=== PATIENT | male | born 1940 | race Caucasian/White ===

== ENCOUNTER 2016-11-22 17:20 | Inpatient (IN) | payer MEDICARE, OTHER ==
[2016-11-22 17:54] VITALS: BMI 27.3
[2016-11-22 18:00] LABS: AUTOMATED EOSINOPHIL 0.1 % (0-5); AUTOMATED LYMPH 6.9 % (17-44); MPV 9.5 fL (7.4-10.4)
[2016-11-22 18:14] LABS: PARTIAL THROMB. TIME 29.4 SEC (22-35)
--- NOTE | 2016-11-22 18:14 | EDPRACDOC ---
- General Information Chief Complaint: Chest Pain Stated Complaint: CHEST PAIN Time Seen by Provider: 11/22/16 17:46 Information Source: Patient Mode of Arrival: Ambulance Home Medications: Home Medications Clonidine [Catapres-TTS 3 (0.3 mg/24 hr)] 1 patch TOP Q7D 05/26/13 Loratadine [Claritin] 10 mg PO BID 05/26/13 NPH, Human Insulin Isophane [Novolin N] 30 unit SQ BID 05/26/13 Omeprazole [Prilosec] 20 mg PO DAILY 05/26/13 HydrALAZINE (Cardiovascular) [Apresoline] 50 mg PO TID #90 tab 06/14/13 Calcium Carb/Vit D3/Minerals [Caltrate w/ Vit D Tab (600mg/800IU)] 600 - 800 mg PO DAILY 10/03/13 Rosuvastatin Calcium [Crestor] 5 mg PO DAILY 10/03/13 Flunisolide [Nasarel] 1 spray SONNY DAILY 03/05/15 Isosorbide Mononitrate [Imdur] 60 mg PO DAILY 03/05/15 Rivaroxaban [Xarelto] 15 mg PO DAILY 03/05/15 Tramadol HCl 1 - 2 tabs PO Q4 PRN 03/05/15 Hydrocodone Bit/Acetaminophen [Lortab 5/325] 1 tab PO Q6H PRN #14 tab 03/06/15 Amlodipine [Norvasc] 5 mg PO DAILY #30 tab 04/02/15 Carvedilol [Coreg] 25 mg PO BID #60 tablet 04/02/15 Furosemide [Lasix] 80 mg PO 0800,1600 #120 04/02/15 POTASSIUM CHLORIDE Tablet [K-DUR 20 mEq Tablet*] 20 meq PO DAILY@1200 #30 tab.er.prt 04/02/15 Probiotic Blend [Aura Q] 1 tab PO BIDLS #60 tablet 04/02/15 Acetaminophen [Tylenol] 1,300 mg PO DAILY PRN 11/22/16 Amoxicillin Trihydrate [Amoxicillin] 2,000 mg PO .BID X 7DAYS 11/22/16 Cyanocobalamin (Vitamin B-12) [Vitamin B-12 (cyanocobalamin)] 1,000 mcg SL DAILY 11/22/16 E-Manganese 1 tab PO DAILY PRN 11/22/16 Ferrous Sulfate [Iron] 325 mg PO DAILY 11/22/16 Fexofenadine HCl [Lexus] 180 mg PO DAILY 11/22/16 Nitroglycerin Sublingual Tab [NTG (NitroStat Sublingual Tab)] 0.4 mg SL Q5MX3 PRN 11/22/16 Oxycodone HCl [Roxicodone] 5 mg PO Q4-6H PRN 11/22/16 Tamsulosin HCl [Flomax] 0.4 mg PO QHS 11/22/16 Allergies/Adverse Reactions: Allergies Allergy/AdvReac Type Severity Reaction Status Date / Time No Known Allergies Allergy Verified 03/28/15 21:50 - History of Present Illness 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 REALLY BAD TODAY. SINUS PROBLEMS. CHEST PRESSURE TODAY. FEVER. STOPPED BLOOD PRESSURE MED AND DIABETES MEDS SO THEY WOULDN'T INTERACT WITH ABX (AMOX). NO CHEST PAIN CURRENTLY. FELT BETTER AT REST. MILD SOB TODAY. 4 CARDIAC STENTS, LAST STENTS OVER 5 YEARS AGO. CABG 20 YEARS AGO. 2012 NSTEMI. CATH AT THAT TIME. PATENT GRAFTS. NO STENTS NEEDED. DETERMINED TO BE DEMAND EVENT. ED Past Medical History - Patient Medical History Cardiac History: Reports: Coronary Artery Disease, Hypertension, Congestive Heart Failure, Heart Attack, Cardiac Catheterization, CABG, Hypercholesterolemia Respiratory History: Reports: COPD, Pneumonia GI/ History: Reports: Renal Disease (Baseline creatinine tends to run between 1.6 and 3.3), Gastroesophageal Reflux Musculoskeletal History: Reports: Arthritis, Gout, Osteoarthritis Psychological History: Denies: Depression, Substance Use Disorder Systemic History: Reports: Anemia, Diabetes. Denies: Cancer Surgical History: Reports: CABG, Angioplasty (With stent placement approximately 10 years ago.), Cardiac Catheterization, Tonsillectomy/ Adnoidectomy, Other (Cataract extractions bilaterally.) - Family Medical History Reports: Hypertension, Diabetes, Cancer (TWIN BROTHER, LUNG CANCER), Stroke, Cardiac Disorders - Social Medical History Smoking Status: Former smoker Social History: Denies: Substance Use Disorder - Physical Exam Constitutional: Alert (Awake), No apparent distress Oriented to: Time, Person, Place Last recorded Vital Signs: Last Vital Signs Temp 99.7 F 11/22/16 17:20 Pulse 81 11/22/16 17:20 Resp 16 11/22/16 17:20 BP 176/84 11/22/16 17:20 Pulse Ox 94 11/22/16 17:20 Oxygen Pulse Oxygen Saturation 94 O2 Device Room Air Oxygen Flow Rate Fraction of Inspired Oxygen ( FIO2) - HEENT Head: Normal ( normocephalic) Eye Exam: Normal (PERRL, EOMI, Sclera white) Oropharynx: Normal (Pharynx:Moist without exudate,Gums-no swelling) Nose: No Symptoms Reported (septum midline) Neck: Normal (FROM, trachea at midline) - Respiratory/Cardiovascular Respiratory: Normal - CTA (BBS clear to auscultation without adventitious sounds ) Cardiovascular: Normal (RRR without murmur, gallop or rub) - GI Auscultation: Normal (NABS) Palpation: Normal (Soft,No rebound or guarding, non distended) Tenderness: Non tender Yates's Sign: Negative - Musculoskeletal Back: Normal (Non-Tender) Extremities: Normal (Normal tone, Pulses 2+ No cyanosis or edema, FROM) - Integumentary Skin: Normal, Warm, Dry Lymphatics: Normal (no adenopathy) - Neurologic Memory Impaired: Normal Motor Function: Normal (Normal tone, Pulses 2+ No cyanosis or edema, FROM) Cranial Nerve: Normal (CN II-X11 intact sensation, strength 5/5) Cerebellar: Normal Mood Description: Normal Perception: Normal - Action ASA given in the ED: No Aspirin therapy held due to: Rivaroxaban Home Med - Results 11/22/16 17:38 11/22/16 17:38 WBC 8.8 xk/uL (3.8-10.8) 11/22/16 17:38 RBC 3.67 xM/uL (4.70-6.10) L 11/22/16 17:38 Hgb 10.9 g/dL (14.0-18.0) L 11/22/16 17:38 Hct 32.3 % (42-52) L 11/22/16 17:38 MCV 88 fL (80-94) 11/22/16 17:38 MCH 29.8 pg (27-32) 11/22/16 17:38 MCHC 33.8 g/dl (33-36) 11/22/16 17:38 RDW 13.8 % (11.5-14.5) 11/22/16 17:38 Plt Count 214 xk/uL (130-400) 11/22/16 17:38 MPV 9.5 fL (7.4-10.4) 11/22/16 17:38 Neut % (Auto) 83.0 % (45-76) H 11/22/16 17:38 Lymph % (Auto) 6.9 % (17-44) L 11/22/16 17:38 [place] % (Auto) 9.0 % (3-10) 11/22/16 17:38 Eos % (Auto) 0.1 % (0-5) 11/22/16 17:38 Baso % (Auto) 1.0 % (0-2) 11/22/16 17:38 Absolute Neuts (auto) 7.30 xk/uL (1.7-8.2) 11/22/16 17:38 Absolute Lymphs (auto) 0.53 xk/uL (0.65-4.75) L 11/22/16 17:38 POC Capillary Glucose 534 MG/DL (70-99) H* 11/22/16 17:36 Lab Results 11/22/16 11/22/16 17:38 17:36 WBC 8.8 RBC 3.67 L Hgb 10.9 L Hct 32.3 L MCV 88 MCH 29.8 MCHC 33.8 RDW 13.8 Plt Count 214 MPV 9.5 Neut % (Auto) 83.0 H Lymph % (Auto) 6.9 L [place] % (Auto) 9.0 Eos % (Auto) 0.1 Baso % (Auto) 1.0 Absolute Neuts (auto) 7.30 Absolute Lymphs (auto) 0.53 L POC Capillary Glucose 534 H* Laboratory Results - last 24 hr 11/22/16 11/22/16 17:36 17:38 WBC 8.8 RBC 3.67 L Hgb 10.9 L Hct 32.3 L MCV 88 MCH 29.8 MCHC 33.8 RDW 13.8 Plt Count 214 MPV 9.5 Neut % (Auto) 83.0 H Lymph % (Auto) 6.9 L [place] % (Auto) 9.0 Eos % (Auto) 0.1 Baso % (Auto) 1.0 Absolute Neuts (auto) 7.30 Absolute Lymphs (auto) 0.53 L POC Capillary Glucose 534 H* Laboratory Results 11/22/16 17:38 - EKG EKG #1 EKG Time: 17:44 -: Yes EKG interpreted by me Rate: bpm: 85 [place]: Normal Rhythm: NSR Block: None ST: Nonsp Comments: ABNORMAL EKG - Additional Information OLD RECORDS REVIEWED. - Departure Yes I personally saw and evaluated the patient. Disposition: Admit IP To This Hospital Condition: Stable Final Diagnosis: Hyperglycemia Chest pain Qualifiers: Chest pain type: unspecified Qualified Code(s): R07.9 - Chest pain, unspecified Hypertension Qualifiers: Hypertension type: essential hypertension Qualified Code(s): I10 - Essential ( primary) hypertension Decision to Admit Time: 21:18 Decision to admit date: 11/22/16 Decision to admit: from ED - Physician Consulted Hospitalist Time Called: 21:18 Provider Called: Leon Morrow Time Correspondence Section Supervisor Returned Call: 21:18
[2016-11-22 18:16] LABS: LEUKOCYTES/URINE NEG (NEGATIVE); NITRITE/URINE NEG (NEGATIVE); RBC/URINE 0-2 (0-2); URINE OCCULT BLOOD NEG (NEG/TRACE)
--- NOTE | 2016-11-22 18:16 | DIRPT ---
CLINICAL DATA: Chest pain, fever. EXAM: PORTABLE CHEST 1 VIEW COMPARISON: March 31, 2015. FINDINGS: The heart size and mediastinal contours are within normal limits. Both lungs are clear. Sternotomy wires are noted. No pneumothorax or pleural effusion is noted. The visualized skeletal structures are unremarkable. IMPRESSION: No acute cardiopulmonary abnormality seen. Electronically Signed By: Christopher Morgan Jr, M.D. On: 11/22/2016 18:13
[2016-11-22 18:36] LABS: ABG Draw Site Left Radial; ALLEN'S TEST PASS; PCO2 47.2 mmHg (35-45)
[2016-11-22 18:37] LABS: BEb 0.4 (+/- 2); TCO2 29.4 MMOL/L (23-27)
[2016-11-22 18:58] LABS: BLOOD UREA NITROGEN 46 MG/DL (9-20); CALC CORRECTED 9.3 MG/DL (8.4-10.2); CALCIUM 8.8 MG/DL (8.4-10.2); CHLORIDE 97 mEq/L (98-107); SODIUM LEVEL 132 mEq/L (137-146); TOTAL PROTEIN 6.3 G/DL (6.3-8.2)
[2016-11-22 19:03] LABS: CALCULATED OSMOLALITY 292 MOs/Kg (270-290)
[2016-11-22 19:08] LABS: GLUCOSE 556 MG/DL (70-99)
[2016-11-22] MEDS ORDERED: REGULAR INSULIN 100 UNITS/ML - 3 ML VIAL SQ ONE (19:21)
[2016-11-22] MEDS ORDERED: CARVEDILOL 25 MG TABLET PO ONE (19:22)
[2016-11-22] MEDS ORDERED: NITROGLYCERINE 2 % OINTMENT PACK TOP ONE (21:19)
--- NOTE | 2016-11-22 23:36 | HISTPHYS ---
- Chief Complaint chest pain and feeling sick - History of Present Illness PRIMARY CARE PROVIDER: Dr. Chau HPI: The patient is a 76 yo man with coronary artery disease and history of CABG who reports he has felt ill for several days; he went to the doctor's office on Sunday, was diagnosed with a sinus infection, and started on an antibiotic. Mild sore throat. Had a fever 2 days ago. Developed some chest pain today. Feels severe fatigue. Onset: Fatigue and fever started 2 days ago. Chest pain started today. Duration : intermittent. Location: substernal. Radiation: none. Character: 05/21. Heaviness and pressure. Alleviated by: sitting. Exacerbated by: exertion. Associated Symptoms: Minimal shortness of breath. Mild cough. Wheezing. Fever and chills. No diaphoresis. Fatigue is severe. Leg swelling over the last month is improving with treatment. Chest pain. No palpitations. Treatments: none at home except usual medications. He has had increased leg swelling in the last month; his doctor doubled his dose of Lasix, and the leg swelling is now decreasing. - Medical History Cardiac History: Reports: Coronary Artery Disease, Hypertension, Congestive Heart Failure, Heart Attack, Cardiac Catheterization, CABG (2000), Hypercholesterolemia Respiratory History: Reports: COPD, Pneumonia GI/ History: Reports: Renal Disease (Baseline creatinine tends to run between 1.6 and 3.3), Gastroesophageal Reflux, BPH Musculoskeletal History: Reports: Arthritis, Gout, Osteoarthritis Systemic History: Reports: Anemia, Diabetes. Denies: Cancer Psychological History: Denies: Depression, Substance Use Disorder - Surgical History Reports: CABG, Angioplasty (With stent placement approximately 10 years ago.), Cardiac Catheterization, Tonsillectomy/Adnoidectomy, Other (Cataract extractions bilaterally.) - Medictions/Allergies Allergies No Known Allergies Allergy (Verified 03/28/15 21:50) Current Medication List: Reviewed Home Medications Clonidine [Catapres-TTS 3 (0.3 mg/24 hr)] 1 patch TOP Q7D 05/26/13 Loratadine [Claritin] 10 mg PO BID 05/26/13 NPH, Human Insulin Isophane [Novolin N] 30 unit SQ BID 05/26/13 Omeprazole [Prilosec] 20 mg PO DAILY 05/26/13 HydrALAZINE (Cardiovascular) [Apresoline] 50 mg PO TID #90 tab 06/14/13 Calcium Carb/Vit D3/Minerals [Caltrate w/ Vit D Tab (600mg/800IU)] 600 - 800 mg PO DAILY 10/03/13 Rosuvastatin Calcium [Crestor] 5 mg PO DAILY 10/03/13 Flunisolide [Nasarel] 1 spray SONNY DAILY 03/05/15 Isosorbide Mononitrate [Imdur] 60 mg PO DAILY 03/05/15 Rivaroxaban [Xarelto] 15 mg PO DAILY 03/05/15 Tramadol HCl 1 - 2 tabs PO Q4 PRN 03/05/15 Hydrocodone Bit/Acetaminophen [Lortab 5/325] 1 tab PO Q6H PRN #14 tab 03/06/15 Amlodipine [Norvasc] 5 mg PO DAILY #30 tab 04/02/15 Carvedilol [Coreg] 25 mg PO BID #60 tablet 04/02/15 Furosemide [Lasix] 80 mg PO 0800,1600 #120 04/02/15 POTASSIUM CHLORIDE Tablet [K-DUR 20 mEq Tablet*] 20 meq PO DAILY@1200 #30 tab.er.prt 04/02/15 Probiotic Blend [Aura Q] 1 tab PO BIDLS #60 tablet 04/02/15 Acetaminophen [Tylenol] 1,300 mg PO DAILY PRN 11/22/16 Amoxicillin Trihydrate [Amoxicillin] 2,000 mg PO .BID X 7DAYS 11/22/16 Cyanocobalamin (Vitamin B-12) [Vitamin B-12 (cyanocobalamin)] 1,000 mcg SL DAILY 11/22/16 E-Manganese 1 tab PO DAILY PRN 11/22/16 Ferrous Sulfate [Iron] 325 mg PO DAILY 11/22/16 Fexofenadine HCl [Lexus] 180 mg PO DAILY 11/22/16 Nitroglycerin Sublingual Tab [NTG (NitroStat Sublingual Tab)] 0.4 mg SL Q5MX3 PRN 11/22/16 Oxycodone HCl [Roxicodone] 5 mg PO Q4-6H PRN 11/22/16 Tamsulosin HCl [Flomax] 0.4 mg PO QHS 11/22/16 - Family History Reports: Hypertension, Diabetes (Sister), Cancer (TWIN BROTHER, LUNG CANCER), Stroke (Father, brother), Cardiac Disorders (Mother: heart disease. Brother and sister: MD.) - Social History Smoking Status: Former smoker Social History: Denies: Alcohol Use, Substance Use Disorder - Review of Systems GENERAL: Fever, chills. No diaphoresis. Positive for fatigue/malaise. HEENT: No ear pain or discharge. Has nasal discharge but no nasal bleeding. Mild throat pain but no throat swelling. No eye pain or eye redness. RESPIRATORY: Minimal shortness of breath. Mild cough. Wheezing. CARDIOVASCULAR: Chest pain. No palpitations. GI: No abdominal pain, nausea, vomiting, diarrhea, constipation, or bloody stool. NEUROLOGICAL: No headache or focal weakness. INTEGUMENT: no rashes, itching, or lesions. LYMPHATIC SYSTEM: no lymph node swelling or pain. MUSCULOSKELETAL: no new pain or joint swelling. GENITOURINARY: No dysuria or hematuria. ENDOCRINE: No polyuria or polydipsia. HEME: No chronic anemia, bleeding, or easy bruising. - Physical Exam Vital Signs: Initial Vitals Temperature 99.7 F 11/22/16 17:20 Pulse Rate 81 11/22/16 17:20 Respiratory Rate 16 11/22/16 17:20 Blood Pressure 176/84 11/22/16 17:20 Pulse Oxygen Saturation 94 11/22/16 17:20 Vital Signs - 24 hr 11/22/16 11/22/16 11/22/16 17:20 18:40 20:23 Temperature 99.7 F 99 F Pulse Rate 81 73 80 Respiratory 16 20 18 Rate Blood Pressure 176/84 212/95 H 180/81 H Pulse Oxygen 94 93 95 Saturation 11/22/16 11/22/16 21:52 23:25 Temperature 99.3 F 101.2 F H Pulse Rate 83 Respiratory 16 Rate Blood Pressure 203/84 H Pulse Oxygen 94 Saturation Weight: 86.7 kg Height: 5'9" BMI: 28.2 - Other Exam Other Exam Findings: GENERAL: Ill-appearing, well nourished, in acute distress. HEENT: Normocephalic, atraumatic; pupils equal and round. Nares patent, without discharge or bleeding. No oropharyngeal lesions or erythema. Mucous membranes are dry. NECK: is supple, no masses, trachea midline. RESPIRATORY: Clear to auscultation bilaterally. Chest wall movements are symmetric. No use of accessory muscles to breathe. Decreased breath sounds bilaterally. No wheezing, rales, rhonchi. CARDIOVASCULAR: Normal S1, S2. Murmur 2/6 systolic heard intermittently. No rubs , or gallops. PMI non-displaced. Carotids: no carotid bruits. Tachycardia. DP pulses 2+ bilaterally. GI: soft, nontender, non-distended, normal active bowel sounds. No hepatosplenomegaly. INTEGUMENT: Clean, dry, and intact. No rashes. No lesions. MUSCULOSKELETAL: Moving all extremities. No cyanosis. No clubbing. Edema: trace lower extremity edema bilaterally. NEUROLOGICAL: Cranial nerves 2-12 grossly intact. Motor 5/5 throughout. Reflexes : 2+ bilaterally. Babinski: toes downgoing bilaterally. Intact Finger to nose. Sensory grossly intact to light touch. Intact rapid alternating movements bilaterally. No pronator drift. PSYCHIATRIC: Fully oriented. Normal and appropriate affect. LYMPHATIC: [place] cervical lymphadenopathy. No supraclavicular lymphadenopathy. - Lab Results Laboratory Tests 11/22/16 11/22/16 11/22/16 17:36 17:38 17:38 WBC 8.8 RBC 3.67 L Hgb 10.9 L Hct 32.3 L MCV 88 MCH 29.8 MCHC 33.8 RDW 13.8 Plt Count 214 MPV 9.5 Neut % (Auto) 83.0 H Lymph % (Auto) 6.9 L [place] % (Auto) 9.0 Eos % (Auto) 0.1 Baso % (Auto) 1.0 Absolute Neuts (auto) 7.30 Absolute Lymphs (auto) 0.53 L PT INR APTT Puncture Site pH pCO2 pO2 HCO3 Total CO2 Base Excess FiO2 % Specimen Drawn By Sodium 132 L Potassium 4.8 Chloride 97 L Carbon Dioxide 23 Anion Gap 17 H BUN 46 H Creatinine 2.20 H Estimated GFR (MDRD) 29 L Glucose 556 H* POC Capillary Glucose 534 H* Hemoglobin A1c Calculated Osmolality 292 H Lactic Acid Calcium 8.8 Corrected Calcium 9.3 Total Bilirubin 0.9 AST 20 ALT 28 Alkaline Phosphatase 66 Troponin I 0.06 Ogo-V-Oreatfdydmr Pept 21897 H Total Protein 6.3 Albumin 3.5 Triglycerides Cholesterol LDL Cholesterol, Calc VLDL Cholesterol, Calc HDL Cholesterol Cholesterol/HDL Ratio Urine Color Urine Clarity Urine pH Ur Specific [place] Urine Protein Urine Glucose (UA) Urine Ketones Urine Occult Blood Urine Nitrite Urine Bilirubin Urine Urobilinogen Ur Leukocyte Esterase Urine RBC Ur Epithelial Cells Urine Mucus 11/22/16 11/22/16 11/22/16 17:38 17:56 18:25 WBC RBC Hgb Hct MCV MCH MCHC RDW Plt Count MPV Neut % (Auto) Lymph % (Auto) [place] % (Auto) Eos % (Auto) Baso % (Auto) Absolute Neuts (auto) Absolute Lymphs (auto) PT 10.7 INR 1.0 APTT 29.4 Puncture Site Left radial pH 7.450 pCO2 47.2 H pO2 62.0 L HCO3 27.7 H Total CO2 29.4 H Base Excess 0.4 FiO2 % 21% Specimen Drawn By Stana Sodium Potassium Chloride Carbon Dioxide Anion Gap BUN Creatinine Estimated GFR (MDRD) Glucose POC Capillary Glucose Hemoglobin A1c Calculated Osmolality Lactic Acid Calcium Corrected Calcium Total Bilirubin AST ALT Alkaline Phosphatase Troponin I Lui-C-Sfjjneeoxus Pept Total Protein Albumin Triglycerides Cholesterol LDL Cholesterol, Calc VLDL Cholesterol, Calc HDL Cholesterol Cholesterol/HDL Ratio Urine Color Pale yellow Urine Clarity Clear Urine pH 8.0 Ur Specific [place] 1.005 Urine Protein 3+ H Urine Glucose (UA) 3+ Urine Ketones 1+ H Urine Occult Blood Neg Urine Nitrite Neg Urine Bilirubin Neg Urine Urobilinogen <2.0 Ur Leukocyte Esterase Neg Urine RBC 0-2 Ur Epithelial Cells Occ Urine Mucus Occ 11/22/16 11/22/16 11/22/16 20:29 23:15 23:15 WBC RBC Hgb Hct MCV MCH MCHC RDW Plt Count MPV Neut % (Auto) Lymph % (Auto) [place] % (Auto) Eos % (Auto) Baso % (Auto) Absolute Neuts (auto) Absolute Lymphs (auto) PT INR APTT Puncture Site pH pCO2 pO2 HCO3 Total CO2 Base Excess FiO2 % Specimen Drawn By Sodium Potassium Chloride Carbon Dioxide Anion Gap BUN Creatinine Estimated GFR (MDRD) Glucose POC Capillary Glucose Hemoglobin A1c 9.8 H Calculated Osmolality Lactic Acid Calcium Corrected Calcium Total Bilirubin AST ALT Alkaline Phosphatase Troponin I 0.07 0.08 [id number] Pept Total Protein Albumin Triglycerides Cholesterol LDL Cholesterol, Calc VLDL Cholesterol, Calc HDL Cholesterol Cholesterol/HDL Ratio Urine Color Urine Clarity Urine pH Ur Specific [place] Urine Protein Urine Glucose (UA) Urine Ketones Urine Occult Blood Urine Nitrite Urine Bilirubin Urine Urobilinogen Ur Leukocyte Esterase Urine RBC Ur Epithelial Cells Urine Mucus - Diagnostic Findings EK bpm. Sinus rhythm with sinus arrhythmia. Inferior infarct, age undetermined. ST and T-wave abnormality, consider lateral ischemia. Minimal ST depression in leads 1, V5. T-wave inversion in leads 1, V5, V6. Minimal J- point elevation in lead 3. Reviewed EKG personally. Chest x-ray, viewed personally: EXAM: PORTABLE CHEST 1 VIEW COMPARISON: March 31, 2015. FINDINGS: The heart size and mediastinal contours are within normal limits. Both lungs are clear. Sternotomy wires are noted. No pneumothorax or pleural effusion is noted. The visualized skeletal structures are unremarkable. IMPRESSION: No acute cardiopulmonary abnormality seen. - Assessment (1) Acute coronary syndrome I24.9 - ACUTE ISCHEMIC HEART DISEASE, UNSPECIFIED Acute Present on Admission: Yes Patient with known coronary artery disease, history of CABG, multiple risk factors, presents with chest pain that is concerning for cardiac ischemia. First troponin in vogt zone and second troponin slightly higher. Plan: Obtain cardiac enzymes x 3. Place patient on telemetry. Give patient oxygen, aspirin. Give nitroglycerin, and morphine as needed for chest pain. Give statin. Note: No stress test has been ordered for the morning because the patient is having severe elevation of blood pressure requiring nitroglycerin IV. He also appears to be having an infectious illness. Patient is anticoagulated with Xarelto. Beta nichol and RUSLAN inhibitor ordered. (2) Hypertensive emergency I16.1 - HYPERTENSIVE EMERGENCY Acute Present on Admission: Yes Severe elevation of his blood pressure. Difficult to treat. Plan: Beta nichol. RUSLAN/ARB - caution due to renal function. Hydralazine. Nitro. If no improvement start IV nitro gtt. (3) Hypoxemia R09.02 - HYPOXEMIA Acute Present on Admission: Yes Plan: O2 by [place] prn. (4) Febrile illness, acute R50.9 - FEVER, UNSPECIFIED Acute Present on Admission: Yes Fever at home. Developed fever shortly after admision. Source of fever is unknown. Could be the sinus infection he was diagnosed with several days ago. Plan: Cultures. Monitor for signs of infection. (5) Type 2 diabetes mellitus with hyperglycemia E11.65 - TYPE 2 DIABETES MELLITUS WITH HYPERGLYCEMIA Acute Present on Admission: Yes Plan: Hold oral diabetes medications. Check fingerstick blood sugars q ac and hs. Sliding scale insulin. Will need to use high-dose sliding scale due to the severe elevation of the patient's glucose. Ordered A1c and urine microalbumin. - Plan Reviewed notes from Dr. Chau's office. Notes greatly appreciated. Case Care Discussed with: Patient, Family
[2016-11-22] MEDS ORDERED: LABETALOL 20 MG/4 ML SYRINGE IV PRN (23:40)
[2016-11-22] MEDS ORDERED: hydrALAZINE 20 MG/ML VIAL IV PRN (23:41)
[2016-11-22] MEDS ORDERED: NITROGLYCERINE 0.4 MG TAB SL PRN (23:42)
[2016-11-22] MEDS ORDERED: GLUCOSE (ORAL GEL) 15 GM TUBE PO PRN (23:42)
[2016-11-22] MEDS ORDERED: DEXTROSE 25 GM/50 ML PFS IV PRN (23:42)
[2016-11-22] MEDS ORDERED: GLUCAGON 1 MG VIAL SQ PRN (23:42)
[2016-11-23] MEDS: REGULAR INSULIN 100 UNITS/ML - 3 ML VIAL SQ SCH ×5 (00:06→22:55)
[2016-11-23] MEDS: NITROGLYCERINE 2 % OINTMENT PACK TOP SCH ×4 (00:08→17:26)
[2016-11-23] MEDS ORDERED: ACETAMINOPHEN 325 MG/TAB TABLET PO ONE (01:36)
[2016-11-23] MEDS ORDERED: TRAMADOL HCL 50 MG TAB PO PRN (01:40)
[2016-11-23] MEDS ORDERED: HYDROCODONE 5 MG/ACETAMIN 325 MG TAB PO PRN (01:40)
[2016-11-23] MEDS ORDERED: Vaccine Screening Complete SCH (02:00)
[2016-11-23] MEDS ORDERED: NITROGLYCERINE 0.4 MG TAB SL PRN (02:03)
[2016-11-23] MEDS ORDERED: MORPHINE 2 MG/ML INJECTION IV PRN (02:03)
[2016-11-23] MEDS ORDERED: ACETAMINOPHEN 325 MG/TAB TABLET PO PRN (02:07)
[2016-11-23] MEDS ORDERED: Docusate Sodium 100 MG CAP PO PRN (02:07)
[2016-11-23] MEDS ORDERED: BENZONATATE 100 MG PERLES PO PRN (02:07)
[2016-11-23] MEDS ORDERED: ONDANSETRON HCL 4 MG/2 ML VIAL IV PRN (02:07)
[2016-11-23] MEDS ORDERED: SENNA CONCENTRATE TAB PO PRN (02:07)
[2016-11-23] MEDS ORDERED: TEMAZEPAM 15 MG CAP PO PRN (02:07)
[2016-11-23] MEDS ORDERED: PROMETHAZINE 25 MG/ML VIAL IV PRN (02:07)
[2016-11-23] MEDS ORDERED: ACETAMINOPHEN 325 MG SUPP PR PRN (02:07)
[2016-11-23] MEDS ORDERED: BISACODYL 5 MG TAB PO PRN (02:07)
[2016-11-23] MEDS ORDERED: GUAIFEN 100 MG-DEXTROMETH 10 MG PER 5 ML PO PRN (02:07)
[2016-11-23] MEDS ORDERED: SIMETHICONE 80 MG TAB PO PRN (02:07)
[2016-11-23] MEDS: Nitroglycerin D5W 50,000 MCG/250 ML IVBOT IV SCH (02:29)
[2016-11-23] MEDS ORDERED: NS 1,000 ML IV ONE (02:38)
[2016-11-23] MEDS: Levofloxacin 750 mg/150 ml D5W 750 MG/150 ML RTU IV SCH (02:40)
[2016-11-23] MEDS ORDERED: Pharmacy Order Set Alert SCH (03:00)
[2016-11-23] MEDS ORDERED: FLUTICASONE PROPIONATE 16 GM BOT NAS SCH (03:00)
[2016-11-23] MEDS ORDERED: NPH INSULIN 100 UNITS/ML PEN SQ SCH (03:00)
[2016-11-23 03:01] LABS: MPV 9.1 fL (7.4-10.4)
[2016-11-23 03:13] LABS: BLOOD UREA NITROGEN 45 MG/DL (9-20); CALC CORRECTED 9.8 MG/DL (8.4-10.2); CALCIUM 8.9 MG/DL (8.4-10.2); CALCULATED OSMOLALITY 277 MOs/Kg (270-290); CHLORIDE 101 mEq/L (98-107); GLUCOSE 147 MG/DL (70-99); LDL (calc.) 40.6 MG/DL (<100); SODIUM LEVEL 136 mEq/L (137-146); TOTAL PROTEIN 5.6 G/DL (6.3-8.2); VLDL (calc.) 35.4 MG/DL (5-40)
[2016-11-23] MEDS ORDERED: ROPINIROLE HCL 0.5 MG TABLET PO ONE (05:43)
[2016-11-23] MEDS: hydrALAZINE 25 MG TAB PO SCH ×3 (06:23→22:49)
[2016-11-23] MEDS: PANTOPRAZOLE 40 MG TAB PO SCH (06:23)
[2016-11-23] MEDS: ISOSORBIDE MONONITRATE 30 MG TAB PO SCH (06:25)
[2016-11-23] MEDS: FUROSEMIDE 40 MG TAB PO SCH ×2 (08:16→15:22)
[2016-11-23] MEDS: LISINOPRIL 5 MG TAB PO SCH (08:18)
[2016-11-23] MEDS: ROSUVASTATIN 10 MG TAB PO SCH (08:18)
[2016-11-23] MEDS: FEXOFENADINE HCL 180 MG TAB PO SCH (08:18)
[2016-11-23] MEDS: RIVAROXABAN 10 MG TAB PO SCH (08:19)
[2016-11-23] MEDS: CARVEDILOL 25 MG TABLET PO SCH ×2 (08:20→22:50)
[2016-11-23] MEDS: AMLODIPINE 5 MG TAB PO SCH (08:20)
[2016-11-23] MEDS: NPH INSULIN 100 UNITS/ML PEN SQ SCH ×2 (08:21→22:54)
[2016-11-23] MEDS: FLUTICASONE PROPIONATE 16 GM BOT NAS SCH (08:21)
[2016-11-23] MEDS ORDERED: Non-Formulary Medication ITEM (Ferrous Sulfate [Iron] 325 MG) PO SCH (09:00)
[2016-11-23] MEDS ORDERED: NPH HUMAN INSULIN ISOPHANE SQ SCH (09:00)
[2016-11-23] MEDS ORDERED: Non-Formulary Medication ITEM (Rosuvastatin Calcium [Crestor] 10 MG) PO SCH (09:00)
[2016-11-23] MEDS ORDERED: Non-Formulary Medication ITEM (Omeprazole 20 MG) PO SCH (09:00)
[2016-11-23] MEDS ORDERED: Non-Formulary Medication ITEM (Cyanocobalamin (Vitamin B-12) [Vitamin B-12 (Cyanocobalam SL SCH (09:00)
[2016-11-23] MEDS ORDERED: FLUNISOLIDE NAS SCH (09:00)
[2016-11-23] MEDS ORDERED: Non-Formulary Medication ITEM (Rivaroxaban [Xarelto] 15 MG) PO SCH (09:00)
[2016-11-23] MEDS: FERROUS SULFATE 324 MG TAB PO SCH (11:18)
[2016-11-23] MEDS: CYANOCOBALAMIN (Vitamin B-12) 500 MCG TABLET PO SCH (11:19)
[2016-11-23] MEDS: PROBIOTIC BLEND TAB PO SCH ×2 (11:19→17:26)
[2016-11-23] MEDS: POTASSIUM CHLORIDE 20 MEQ TAB PO SCH (11:19)
--- NOTE | 2016-11-23 11:48 | DIRPT ---
CLINICAL DATA: Fever, cough, sinus problems EXAM: CHEST 2 VIEW COMPARISON: 11/22/2016 FINDINGS: There is no focal parenchymal opacity. There are trace bilateral pleural effusions. There is a known pneumothorax. There is mild bilateral interstitial prominence. There is stable cardiomegaly. There is evidence of prior median sternotomy. The osseous structures are unremarkable. IMPRESSION: Cardiomegaly with mild pulmonary vascular congestion. Electronically Signed By: Regla Thompson On: 11/23/2016 11:46
[2016-11-23] MEDS ORDERED: CALCIUM CARBONATE 500 MG TAB PO PRN (12:53)
[2016-11-23] MEDS ORDERED: ROPINIROLE HCL 0.5 MG TABLET PO PRN (17:22)
--- NOTE | 2016-11-23 17:28 | GENMEDPROG ---
Subjective Note: Patient admitted early this morning with chest pains. Later he developed a fever. Workup has been unremarkable. Notes Reviewed: Yes Events from last night noted and discussed with Clinical Staff Currently: Reports: Cough, Fever/Chills, Other (Mild upper respiratory symptoms) . Denies: Nausea and Vomiting, Abdominal Pain DVT Prophylaxis: Yes - Physical Examination Vital Signs and I&O: Last Vital Signs Temp 99.1 F 11/23/16 16:00 Pulse 74 11/23/16 17:00 Resp 18 11/23/16 16:00 BP 161/60 11/23/16 17:00 Pulse Ox 94 11/23/16 16:00 Oxygen Pulse Oxygen Saturation 94 O2 Device Room Air Oxygen Flow Rate Fraction of Inspired Oxygen ( FIO2) Intake & Output 11/20/16 11/21/16 11/22/16 11/23/16 23:59 23:59 23:59 23:59 Intake Total 669 Output Total 550 Balance 119 Patient's weight 86.721 kg General: Alert, Oriented x3, No acute distress, Well appearing, Well nourished HEENT: Normal (Normocephalic, atraumatic;EOMI.Sclera white, Nares patent, without discharge or bleeding. No oropharyngeal lesions or erythema. Mucous membranes are dry.) Neck: Non-tender, Full range of motion, Normal Trachea alignment, Normal inspection (No cervical lymphadenopathy. No supraclavicular lymphadenopathy.), No Masses palpable, Supple Lymphatics: Normal (no adenopathy) Respiratory: Normal - CTA (BBS clear to auscultation without adventitious sounds ) Cardiovascular: Regular rate and rhythm (No bradycardia or tachycardia), Normal S1, No Gallops,Rubs/Murmurs, Normal S2, Good Pedal Pulses (DP pulses 2+ bilaterally) GI: Normal bowel sounds (normal active sounds), Soft (non-distended), Non tender , No hepatospenomegaly, No masses Extremities/Musculoskeletal: Normal pulses (DP pulses 2+ bilaterally) Skin: Warm,Dry and Intact, No rashes, No significant lesion Neurological: Strength at 5/5 X4 ext (Motor 5/5 throughout.), Normal tone, Cranial nerves 3-12 NL ( 2-12 grossly intact.) Lab/DI/Studies Reviewed: Laboratory Results - last 24 hr 11/22/16 11/22/16 11/22/16 17:36 17:38 17:38 WBC 8.8 RBC 3.67 L Hgb 10.9 L Hct 32.3 L MCV 88 MCH 29.8 MCHC 33.8 RDW 13.8 Plt Count 214 MPV 9.5 Neut % (Auto) 83.0 H Lymph % (Auto) 6.9 L Rhea % (Auto) 9.0 Eos % (Auto) 0.1 Baso % (Auto) 1.0 Absolute Neuts (auto) 7.30 Absolute Lymphs (auto) 0.53 L PT INR APTT Puncture Site pH pCO2 pO2 HCO3 Total CO2 Base Excess FiO2 % Specimen Drawn By Sodium 132 L Potassium 4.8 Chloride 97 L Carbon Dioxide 23 Anion Gap 17 H BUN 46 H Creatinine 2.20 H Estimated GFR (MDRD) 29 L Glucose 556 H* POC Capillary Glucose 534 H* Hemoglobin A1c Calculated Osmolality 292 H Lactic Acid Calcium 8.8 Corrected Calcium 9.3 Total Bilirubin 0.9 AST 20 ALT 28 Alkaline Phosphatase 66 Creatine Kinase Troponin I 0.06 Lqp-[id number]-Yvqgszqfovp Pept 22505 H Total Protein 6.3 Albumin 3.5 Triglycerides Cholesterol LDL Cholesterol, Calc VLDL Cholesterol, Calc HDL Cholesterol Cholesterol/HDL Ratio Urine Color Urine Clarity Urine pH Ur Specific [place] Urine Protein Urine Glucose (UA) Urine Ketones Urine Occult Blood Urine Nitrite Urine Bilirubin Urine Urobilinogen Ur Leukocyte Esterase Urine RBC Ur Epithelial Cells Urine Mucus 11/22/16 11/22/16 11/22/16 17:38 17:56 18:25 WBC RBC Hgb Hct MCV MCH MCHC RDW Plt Count MPV Neut % (Auto) Lymph % (Auto) Rhea % (Auto) Eos % (Auto) Baso % (Auto) Absolute Neuts (auto) Absolute Lymphs (auto) PT 10.7 INR 1.0 APTT 29.4 Puncture Site Left radial pH 7.450 pCO2 47.2 H pO2 62.0 L HCO3 27.7 H Total CO2 29.4 H Base Excess 0.4 FiO2 % 21% Specimen Drawn By Stana Sodium Potassium Chloride Carbon Dioxide Anion Gap BUN Creatinine Estimated GFR (MDRD) Glucose POC Capillary Glucose Hemoglobin A1c Calculated Osmolality Lactic Acid Calcium Corrected Calcium Total Bilirubin AST ALT Alkaline Phosphatase Creatine Kinase Troponin I Lgx-Y-Sheevckpifl Pept Total Protein Albumin Triglycerides Cholesterol LDL Cholesterol, Calc VLDL Cholesterol, Calc HDL Cholesterol Cholesterol/HDL Ratio Urine Color Pale yellow Urine Clarity Clear Urine pH 8.0 Ur Specific [place] 1.005 Urine Protein 3+ H Urine Glucose (UA) 3+ Urine Ketones 1+ H Urine Occult Blood Neg Urine Nitrite Neg Urine Bilirubin Neg Urine Urobilinogen <2.0 Ur Leukocyte Esterase Neg Urine RBC 0-2 Ur Epithelial Cells Occ Urine Mucus Occ 11/22/16 11/22/16 11/22/16 20:29 23:15 23:15 WBC RBC Hgb Hct MCV MCH MCHC RDW Plt Count MPV Neut % (Auto) Lymph % (Auto) Rhea % (Auto) Eos % (Auto) Baso % (Auto) Absolute Neuts (auto) Absolute Lymphs (auto) PT INR APTT Puncture Site pH pCO2 pO2 HCO3 Total CO2 Base Excess FiO2 % Specimen Drawn By Sodium Potassium Chloride Carbon Dioxide Anion Gap BUN Creatinine Estimated GFR (MDRD) Glucose POC Capillary Glucose Hemoglobin A1c 9.8 H Calculated Osmolality Lactic Acid Calcium Corrected Calcium Total Bilirubin AST ALT Alkaline Phosphatase Creatine Kinase Troponin I 0.07 0.08 Ega-E-Txcbhnbowyu Pept Total Protein Albumin Triglycerides Cholesterol LDL Cholesterol, Calc VLDL Cholesterol, Calc HDL Cholesterol Cholesterol/HDL Ratio Urine Color Urine Clarity Urine pH Ur Specific [place] Urine Protein Urine Glucose (UA) Urine Ketones Urine Occult Blood Urine Nitrite Urine Bilirubin Urine Urobilinogen Ur Leukocyte Esterase Urine RBC Ur Epithelial Cells Urine Mucus 11/22/16 11/23/16 11/23/16 23:43 02:41 02:50 WBC RBC Hgb Hct MCV MCH MCHC RDW Plt Count MPV Neut % (Auto) Lymph % (Auto) Rhea % (Auto) Eos % (Auto) Baso % (Auto) Absolute Neuts (auto) Absolute Lymphs (auto) PT INR APTT Puncture Site pH pCO2 pO2 HCO3 Total CO2 Base Excess FiO2 % Specimen Drawn By Sodium 136 L Potassium 3.9 Chloride 101 Carbon Dioxide 25 Anion Gap 14 BUN 45 H Creatinine 2.20 H Estimated GFR (MDRD) 29 L Glucose 147 H POC Capillary Glucose 412 H* 146 H Hemoglobin A1c Calculated Osmolality 277 Lactic Acid Calcium 8.9 Corrected Calcium 9.8 Total Bilirubin 0.7 AST 18 ALT 30 Alkaline Phosphatase 55 Creatine Kinase Troponin I Zho-M-Qexltotvkic Pept Total Protein 5.6 L Albumin 3.1 L Triglycerides 177 H Cholesterol 104 LDL Cholesterol, Calc 40.6 VLDL Cholesterol, Calc 35.4 HDL Cholesterol 28.0 L Cholesterol/HDL Ratio 3.7 Urine Color Urine Clarity Urine pH Ur Specific [place] Urine Protein Urine Glucose (UA) Urine Ketones Urine Occult Blood Urine Nitrite Urine Bilirubin Urine Urobilinogen Ur Leukocyte Esterase Urine RBC Ur Epithelial Cells Urine Mucus 11/23/16 11/23/16 11/23/16 02:50 02:50 06:00 WBC 11.2 H RBC 3.62 L Hgb 10.5 L Hct 31.1 L MCV 86 MCH 29.1 MCHC 33.8 RDW 13.9 Plt Count 229 MPV 9.1 Neut % (Auto) Lymph % (Auto) Rhea % (Auto) Eos % (Auto) Baso % (Auto) Absolute Neuts (auto) Absolute Lymphs (auto) PT INR APTT Puncture Site pH pCO2 pO2 HCO3 Total CO2 Base Excess FiO2 % Specimen Drawn By Sodium Potassium Chloride Carbon Dioxide Anion Gap BUN Creatinine Estimated GFR (MDRD) Glucose POC Capillary Glucose 175 H Hemoglobin A1c Calculated Osmolality Lactic Acid 1.4 Calcium Corrected Calcium Total Bilirubin AST ALT Alkaline Phosphatase Creatine Kinase Troponin I Fol-C-Ladjcithvkz Pept Total Protein Albumin Triglycerides Cholesterol LDL Cholesterol, Calc VLDL Cholesterol, Calc HDL Cholesterol Cholesterol/HDL Ratio Urine Color Urine Clarity Urine pH Ur Specific [place] Urine Protein Urine Glucose (UA) Urine Ketones Urine Occult Blood Urine Nitrite Urine Bilirubin Urine Urobilinogen Ur Leukocyte Esterase Urine RBC Ur Epithelial Cells Urine Mucus 11/23/16 11/23/16 11:16 12:20 WBC RBC Hgb Hct MCV MCH MCHC RDW Plt Count MPV Neut % (Auto) Lymph % (Auto) Rhea % (Auto) Eos % (Auto) Baso % (Auto) Absolute Neuts (auto) Absolute Lymphs (auto) PT INR APTT Puncture Site pH pCO2 pO2 HCO3 Total CO2 Base Excess FiO2 % Specimen Drawn By Sodium Potassium Chloride Carbon Dioxide Anion Gap BUN Creatinine Estimated GFR (MDRD) Glucose POC Capillary Glucose 265 H Hemoglobin A1c Calculated Osmolality Lactic Acid Calcium Corrected Calcium Total Bilirubin AST ALT Alkaline Phosphatase Creatine Kinase 148 Troponin I 0.08 Isu-A-Pyypxwtztjv Pept Total Protein Albumin Triglycerides Cholesterol LDL Cholesterol, Calc VLDL Cholesterol, Calc HDL Cholesterol Cholesterol/HDL Ratio Urine Color Urine Clarity Urine pH Ur Specific [place] Urine Protein Urine Glucose (UA) Urine Ketones Urine Occult Blood Urine Nitrite Urine Bilirubin Urine Urobilinogen Ur Leukocyte Esterase Urine RBC Ur Epithelial Cells Urine Mucus CHEST 2 VIEW COMPARISON: 11/22/2016 FINDINGS: There is no focal parenchymal opacity. There are trace bilateral pleural effusions. There is a known pneumothorax. There is mild bilateral interstitial prominence. There is stable cardiomegaly. There is evidence of prior median sternotomy. The osseous structures are unremarkable. IMPRESSION: Cardiomegaly with mild pulmonary vascular congestion. Electronically Signed By: Regla Thompson On: 11/23/2016 11:46 - Assessment (1) Viral syndrome Acute B34.9 - VIRAL INFECTION, UNSPECIFIED Comment/Plan: In addition to patient's chest pain he has developed a viral syndrome. It does not appear to be anything that would be amenable to antibiotic treatment. Will continue to monitor. Will provide symptomatic care. Critical Care: No Couseling Time (>50% in counseling/coordination): No
[2016-11-23] MEDS ORDERED: ROPINIROLE HCL 0.5 MG TABLET PO SCH (21:00)
[2016-11-23] MEDS: TAMSULOSIN HCL 0.4 MG CAP PO SCH (22:50)
[2016-11-24] MEDS: NITROGLYCERINE 2 % OINTMENT PACK TOP SCH ×5 (01:05→17:40)
[2016-11-24] MEDS: Nitroglycerin D5W 50,000 MCG/250 ML IVBOT IV SCH (04:02)
[2016-11-24] MEDS: hydrALAZINE 25 MG TAB PO SCH ×3 (04:56→21:52)
[2016-11-24] MEDS: PANTOPRAZOLE 40 MG TAB PO SCH (04:57)
[2016-11-24] MEDS: REGULAR INSULIN 100 UNITS/ML - 3 ML VIAL SQ SCH ×4 (06:51→21:56)
[2016-11-24] MEDS: ISOSORBIDE MONONITRATE 30 MG TAB PO SCH (08:33)
[2016-11-24] MEDS: CARVEDILOL 25 MG TABLET PO SCH ×2 (08:33→21:52)
[2016-11-24] MEDS: AMLODIPINE 5 MG TAB PO SCH (08:33)
[2016-11-24] MEDS: FUROSEMIDE 40 MG TAB PO SCH ×2 (08:33→17:02)
[2016-11-24] MEDS: LISINOPRIL 5 MG TAB PO SCH (08:33)
[2016-11-24] MEDS: ROSUVASTATIN 10 MG TAB PO SCH (08:33)
[2016-11-24] MEDS: FEXOFENADINE HCL 180 MG TAB PO SCH (08:33)
[2016-11-24] MEDS: FLUTICASONE PROPIONATE 16 GM BOT NAS SCH (08:38)
[2016-11-24] MEDS: NPH INSULIN 100 UNITS/ML PEN SQ SCH ×2 (08:42→21:56)
[2016-11-24] MEDS: RIVAROXABAN 10 MG TAB PO SCH (08:45)
[2016-11-24] MEDS: PROBIOTIC BLEND TAB PO SCH ×2 (13:00→17:02)
[2016-11-24] MEDS: FERROUS SULFATE 324 MG TAB PO SCH (13:00)
[2016-11-24] MEDS: CYANOCOBALAMIN (Vitamin B-12) 500 MCG TABLET PO SCH (13:00)
[2016-11-24] MEDS: POTASSIUM CHLORIDE 20 MEQ TAB PO SCH (13:01)
--- NOTE | 2016-11-24 17:27 | CAPUEKG ---
[place], [place] Test Date: 2016-11-24 Pat Name: KO PARKER Department: Room: 446 Gender: Male Manager Planning: : Requested By: Order Number: Reading MD: Bismark Alan MD Measurements Intervals [place] Rate: 67 P: 42 CA: 144 QRS: 26 QRSD: 104 T: 144 QT: 430 QTc: 454 Interpretive Statements Sinus rhythm with premature atrial complexes Inferior infarct, age undetermined ST \T\ T wave abnormality, consider lateral ischemia Abnormal ECG Electronically Signed On 11-24-16 17:27:33 EST by Bismark Alan MD <[email or web address] [id number]
[2016-11-24] MEDS ORDERED: hydrALAZINE 20 MG/ML VIAL IV PRN (18:14)
--- NOTE | 2016-11-24 18:17 | GENMEDPROG ---
Subjective Note: Patient in bed responsive follows commands. Denies any chest discomfort. Denies any PND or orthopnea. No fevers chills no cough or phlegm production. Notes Reviewed: Yes Events from last night noted and discussed with Clinical Staff Currently: Reports: Cough, Sputum, Fever/Chills, Other (Mild upper respiratory symptoms). Denies: Nausea and Vomiting, Abdominal Pain DVT Prophylaxis: Yes - Physical Examination Vital Signs and I&O: Last Vital Signs Temp 98.2 F 11/24/16 16:00 Pulse 70 11/24/16 17:15 Resp 18 11/24/16 16:00 BP 132/53 L 11/24/16 17:00 Pulse Ox 96 11/24/16 16:00 Oxygen Pulse Oxygen Saturation 96 O2 Device Room Air Oxygen Flow Rate Fraction of Inspired Oxygen ( FIO2) Intake & Output 11/21/16 11/22/16 11/23/16 11/24/16 23:59 23:59 23:59 23:59 Intake Total 1109 536 Output Total 1400 1075 Balance -291 -539 Patient's weight 86.721 kg 85.094 kg General: Alert, Oriented x3, No acute distress, Well appearing, Well nourished HEENT: Normal (Normocephalic, atraumatic;EOMI.Sclera white, Nares patent, without discharge or bleeding. No oropharyngeal lesions or erythema. Mucous membranes are dry.), PERRLA, EOMI, Anicteric Sclera Neck: Non-tender, Full range of motion, Normal Trachea alignment, Normal inspection (No cervical lymphadenopathy. No supraclavicular lymphadenopathy.), No Masses palpable, Supple Lymphatics: Normal (no adenopathy) Respiratory: Normal - CTA (BBS clear to auscultation without adventitious sounds ), Diminished, Rhonchi Cardiovascular: Regular rate and rhythm (No bradycardia or tachycardia), Normal S1, No Gallops,Rubs/Murmurs, Normal S2, Murmurs, Good Pedal Pulses (DP pulses 2 + bilaterally) GI: Normal bowel sounds (normal active sounds), Soft (non-distended), Non tender , No hepatospenomegaly, No masses Extremities/Musculoskeletal: Normal pulses (DP pulses 2+ bilaterally) Skin: Warm,Dry and Intact, No rashes, No significant lesion Neurological: Strength at 5/5 X4 ext (Motor 5/5 throughout.), Normal tone, Cranial nerves 3-12 NL ( 2-12 grossly intact.) Psych/Mental Status: Anxious Lab/DI/Studies Reviewed: Last Vital Signs Temp 98.2 F 11/24/16 16:00 Pulse 70 11/24/16 17:15 Resp 18 11/24/16 16:00 BP 132/53 L 11/24/16 17:00 Pulse Ox 96 11/24/16 16:00 11/23/16 02:50 11/23/16 02:50 - Assessment (1) Chest pain Acute R07.9 - CHEST PAIN, UNSPECIFIED Qualifiers: Chest pain type: unspecified Qualified Code(s): R07.9 - Chest pain, unspecified Comment/Plan: Symptoms very atypical continue medical therapy repeat troponin in the morning. (2) Febrile illness, acute Acute R50.9 - FEVER, UNSPECIFIED Comment/Plan: Continue antibiotic. (3) Hypertension Chronic I10 - ESSENTIAL (PRIMARY) HYPERTENSION Qualifiers: Hypertension type: essential hypertension Qualified Code(s): I10 - Essential (primary) hypertension Comment/Plan: Adjust medications keep SBP less than 140 (4) Type 2 diabetes mellitus with hyperglycemia Chronic E11.65 - TYPE 2 DIABETES MELLITUS WITH HYPERGLYCEMIA Comment/Plan: monitor blood sugar (5) ARF (acute renal failure) Acute N17.9 - ACUTE KIDNEY FAILURE, UNSPECIFIED Qualifiers: Acute renal failure type: unspecified acute renal failure Qualified Code(s) : N17.9 - Acute kidney failure, unspecified Comment/Plan: Monitor renal function (6) Congestive heart failure Acute I50.9 - HEART FAILURE, UNSPECIFIED Qualifiers: Congestive heart failure type: systolic Comment/Plan: Compensated monitor weight continue salt restriction continue diuretic. (7) CAD (coronary artery disease) Acute I25.10 - ATHSCL HEART DISEASE OF [place] CORONARY ARTERY W/O ANG PCTRS Qualifiers: Coronary Disease-Associated Artery/Lesion type: [place] artery [place] vs. transplanted heart: [place] heart Associated angina: with unspecified angina Qualified Code(s): I25.119 - Atherosclerotic heart disease of [place] coronary artery with unspecified angina pectoris Comment/Plan: Continue medical therapy hr payroll coordinator to see Case Care Discussed with: Patient, Family, Nursing Staff Education/Counseling Given To: Patient Education/Counseling Given Regarding: Diagnosis, Treatment, Prognosis, Follow Up , Disposition Plan Total Time: 40 min . Critical Care: No Code: 56201 (12+)
[2016-11-24] MEDS: TAMSULOSIN HCL 0.4 MG CAP PO SCH (21:52)
[2016-11-25] MEDS: Levofloxacin 750 mg/150 ml D5W 750 MG/150 ML RTU IV SCH (00:33)
[2016-11-25] MEDS: NITROGLYCERINE 2 % OINTMENT PACK TOP SCH ×3 (00:34→12:08)
[2016-11-25] MEDS: hydrALAZINE 25 MG TAB PO SCH ×2 (05:54→12:09)
[2016-11-25] MEDS: REGULAR INSULIN 100 UNITS/ML - 3 ML VIAL SQ SCH ×2 (05:54→12:05)
[2016-11-25] MEDS: PANTOPRAZOLE 40 MG TAB PO SCH (05:54)
[2016-11-25] MEDS ORDERED: AMLODIPINE 10 MG TAB PO SCH (09:00)
[2016-11-25] MEDS ORDERED: CLONIDINE 0.3 MG TOP SCH (09:00)
[2016-11-25] MEDS: FUROSEMIDE 40 MG TAB PO SCH (10:55)
[2016-11-25] MEDS: FEXOFENADINE HCL 180 MG TAB PO SCH (10:56)
[2016-11-25] MEDS: CARVEDILOL 25 MG TABLET PO SCH (10:58)
[2016-11-25] MEDS: FLUTICASONE PROPIONATE 16 GM BOT NAS SCH (10:58)
[2016-11-25] MEDS: ROSUVASTATIN 10 MG TAB PO SCH (10:58)
[2016-11-25] MEDS: NPH INSULIN 100 UNITS/ML PEN SQ SCH (10:59)
[2016-11-25] MEDS: ISOSORBIDE MONONITRATE 30 MG TAB PO SCH (10:59)
[2016-11-25] MEDS: RIVAROXABAN 10 MG TAB PO SCH (11:02)
[2016-11-25 11:03] VITALS: BP 178/88; TEMP 98.1
[2016-11-25] MEDS: LISINOPRIL 5 MG TAB PO SCH (11:03)
--- NOTE | 2016-11-25 11:03 | PCM.CARDCO ---
Consultation Date: 11/25/16 Requesting Physician: Kiko Rivera Development Engineer: Bismark Alan Consult Reason: Chest Pain - History of Present Illness Patient is a pleasant 76-year-old male with past medical history of coronary artery disease, stenting bypass surgery. He came into the hospital with symptoms of fever and chills and upper respiratory prodrome kind of symptoms. At that time he complained of some chest pain. No orthopnea or PND. No radiation of the pain to the neck or to the arms. Chest pain was atypical in nature. At the time of my evaluation is alert awake oriented comfortable and cheerful. Mentions to me that in the past couple days he has felt significantly better. He also mentions to me that he had some swelling in the lower extremities which has gotten better. I was called to evaluate to see if he needs to be staying inpatient for stress testing. Chief Complaint: chest pain and feeling sick - Past Medical and Surgical History Psychological History: Denies: Substance Use Disorder Allergies No Known Allergies Allergy (Verified 03/28/15 21:50) Home Medications Clonidine [Catapres-TTS 3 (0.3 mg/24 hr)] 1 patch TOP Q7D 05/26/13 Loratadine [Claritin] 10 mg PO BID 05/26/13 NPH, Human Insulin Isophane [Novolin N] 30 unit SQ BID 05/26/13 Omeprazole [Prilosec] 20 mg PO DAILY 05/26/13 HydrALAZINE (Cardiovascular) [Apresoline] 50 mg PO TID #90 tab 06/14/13 Calcium Carb/Vit D3/Minerals [Caltrate w/ Vit D Tab (600mg/800IU)] 600 - 800 mg PO DAILY 10/03/13 Rosuvastatin Calcium [Crestor] 5 mg PO DAILY 10/03/13 Flunisolide [Nasarel] 1 spray SONNY DAILY 03/05/15 Isosorbide Mononitrate [Imdur] 60 mg PO DAILY 03/05/15 Rivaroxaban [Xarelto] 15 mg PO DAILY 03/05/15 Tramadol HCl 1 - 2 tabs PO Q4 PRN 03/05/15 Hydrocodone Bit/Acetaminophen [Lortab 5/325] 1 tab PO Q6H PRN #14 tab 03/06/15 Amlodipine [Norvasc] 5 mg PO DAILY #30 tab 04/02/15 Carvedilol [Coreg] 25 mg PO BID #60 tablet 04/02/15 Furosemide [Lasix] 80 mg PO 0800,1600 #120 04/02/15 POTASSIUM CHLORIDE Tablet [K-DUR 20 mEq Tablet*] 20 meq PO DAILY@1200 #30 tab.er.prt 04/02/15 Probiotic Blend [Aura Q] 1 tab PO BIDLS #60 tablet 04/02/15 Acetaminophen [Tylenol] 1,300 mg PO DAILY PRN 11/22/16 Amoxicillin Trihydrate [Amoxicillin] 2,000 mg PO .BID X 7DAYS 11/22/16 Cyanocobalamin (Vitamin B-12) [Vitamin B-12 (cyanocobalamin)] 1,000 mcg SL DAILY 11/22/16 E-Manganese 1 tab PO DAILY PRN 11/22/16 Ferrous Sulfate [Iron] 325 mg PO DAILY 11/22/16 Fexofenadine HCl [Lexus] 180 mg PO DAILY 11/22/16 Nitroglycerin Sublingual Tab [NTG (NitroStat Sublingual Tab)] 0.4 mg SL Q5MX3 PRN 11/22/16 Oxycodone HCl [Roxicodone] 5 mg PO Q4-6H PRN 11/22/16 Tamsulosin HCl [Flomax] 0.4 mg PO QHS 11/22/16 - Social History Social History: Denies: Substance Use Disorder - Family History Reports: Hypertension, Diabetes (Sister), Cancer (TWIN BROTHER, LUNG CANCER), Stroke (Father, brother), Cardiac Disorders (Mother: heart disease. Brother and sister: [place].) - Physical Exam Constitutional: Alert (Awake), No apparent distress Oriented to: Time, Person, Place Exam: Last Vital Signs Temp 98.2 F 11/25/16 07:53 Pulse 69 11/25/16 10:02 Resp 18 11/25/16 07:53 BP 178/58 L 11/25/16 07:53 Pulse Ox 99 11/25/16 10:15 Intake & Output 11/24/16 11/25/16 11/25/16 23:59 07:59 15:59 Output Total 100 300 Balance -100 -300 Patient's weight 84.051 kg - HEENT Head: Normal ( normocephalic) Eye: Normal (PERRL, EOMI, Sclera white) Oropharynx: Normal (Pharynx:Moist without exudate,Gums-no swelling) Nose: No Symptoms Reported (septum midline) - Respiratory/Cardiovascular Respiratory: Normal - CTA (BBS clear to auscultation without adventitious sounds ), Diminished, Rhonchi Cardiovascular: Other (Cardiac auscultation S1-S2 regular 2/6 systolic murmur at the apex lungs bilateral air entry and no pedal edema.) - GI Auscultation: Normal (NABS) Palpation: Normal (Soft,No rebound or guarding, non distended) Tenderness: Non tender - Musculoskeletal Back: Normal (Non-Tender) Extremities: Normal (Normal tone, Pulses 2+ No cyanosis or edema, FROM) - Integumentary Lymphatics: Normal (no adenopathy) - Neurologic Memory Impaired: Normal Cerebellar: Normal Mood Description: Normal Perception: Normal - Other Exam Other Exam Findings: The abdomen is nontender. No cyanosis clubbing or pedal edema on the extremity evaluation. Neurological and musculoskeletal examination nonfocal. - Assessment/Plan (1) CAD (coronary artery disease) I25.10 - ATHSCL HEART DISEASE OF [place] CORONARY ARTERY W/O ANG PCTRS Acute [place] artery [place] heart with unspecified angina I25.119 - Atherosclerotic heart disease of [place] coronary artery with unspecified angina pectoris Comment: Coronary artery disease appears clinically stable. His symptoms appear to be more of a viral prodrome. However we will have an echocardiogram to assess his systolic function as he complains of some pedal edema issues. Also I would like to ambulate him and see how he does from a symptom standpoint. I would prefer to treat him medically at this time. I would prefer not to do a stress test dizzy if he is asymptomatic in view of the ongoing viral prodrome and the fact that he has a coming. In addition to this I a.m. not very keen on this ongoing the intervention route for him anyway in view of his significant renal issues. I discussed this with him and his family and the hospitalist and we concur on this issue. (2) Febrile illness, acute R50.9 - FEVER, UNSPECIFIED Acute Comment: Patient appears to be clinically improving from this. (3) Type 2 diabetes mellitus with hyperglycemia E11.65 - TYPE 2 DIABETES MELLITUS WITH HYPERGLYCEMIA Chronic Comment: Diet was discussed and this is managed by the hospitalist. (4) ARF (acute renal failure) N17.9 - ACUTE KIDNEY FAILURE, UNSPECIFIED Acute unspecified acute renal failure N17.9 - Acute kidney failure, unspecified Comment: Renal function will need to be monitored closely by internal medicine and also on an outpatient by his primary care physician (5) Dyslipidemia E78.5 - HYPERLIPIDEMIA, UNSPECIFIED Chronic Comment: The diet was discussed and he is on a statin. Case Care Discussed with: Patient, Consultants, Family Plan: Patient is on anticoagulation. It appears that he has had atrial fibrillation in the past based on history. I do not have any documentation on this. This is managed by his industrial therapist and he tells me that he will discuss this with his industrial therapist as an on an outpatient basis. If we decide to send him home without a stress test and I will follow him closely on outpatient basis. He has been seen by me in the past and lost to follow-up.
--- NOTE | 2016-11-25 11:53 | PCM.DCS92 ---
- Final/Secondary Discharge Diagnosis (1) Chest pain Acute R07.9 - CHEST PAIN, UNSPECIFIED Present on Admission: Yes unspecified R07.9 - Chest pain, unspecified Comment: Atypical, ruled out MS by cardiac enzymes. Ambulated down the rojas without any symptoms today. Seen by Cardiology and cleared for discharge. (2) Febrile illness, acute Acute R50.9 - FEVER, UNSPECIFIED Present on Admission: Yes Comment: Continue and finish course of Levaquin. (3) Hypertension Chronic I10 - ESSENTIAL (PRIMARY) HYPERTENSION essential hypertension I10 - Essential (primary) hypertension Comment: Adjust medications keep SBP less than 140. Change Norvasc to 10 mg upon discharge (4) Type 2 diabetes mellitus with hyperglycemia Chronic E11.65 - TYPE 2 DIABETES MELLITUS WITH HYPERGLYCEMIA Present on Admission: Yes without termite control servicer use E11.65 - Type 2 diabetes mellitus with hyperglycemia Comment: monitor blood sugar Plan/Goal/Comment: Continue ADA diet, and insulin (5) ARF (acute renal failure) Acute N17.9 - ACUTE KIDNEY FAILURE, UNSPECIFIED Present on Admission: Yes unspecified acute renal failure N17.9 - Acute kidney failure, unspecified Comment: Monitor renal function (6) Congestive heart failure Acute I50.9 - HEART FAILURE, UNSPECIFIED systolic Comment: Compensated monitor weight continue salt restriction continue diuretic. (7) CAD (coronary artery disease) Acute I25.10 - ATHSCL HEART DISEASE OF [place] CORONARY ARTERY W/O ANG PCTRS [place] artery [place] heart with unspecified angina I25.119 - Atherosclerotic heart disease of [place] coronary artery with unspecified angina pectoris Comment: Continue medical therapy , seen by Cardiology Discharge Disposition: Home Discharge Condition: Improved Cognitive Discharge Status: Unimpaired Fuctional Discharge Status: Independent Physician Follow up/Referrals: Bismark Alan MD [Staff Physician] - Two Weeks New Prescriptions: Levofloxacin [Levaquin] 750 mg PO DAILY #5 tablet Guaifenesin [Mucinex] 1,200 mg PO BID #14 tbmp.12hr Amlodipine [Norvasc] 10 mg PO DAILY #90 tab O2 Device: Room Air Diet at Discharge: Heart Healthy, Low Salt, Diabetic, 2200 Calorie, High Fiber Activity: As Tolerated, Limited Call Office For: Worsening Symptoms, Fever over 101 F Discontinue use of:: Alcohol, All Illegal Substances, All Types of Tobacco - DC Summary Notes Hospital Course Note:: Discharge summary on patient named KO PARKER admitted to [facility] on 11/22/16 by Leon Morrow MD. Date of discharge is []. Patient has initially presented to emergency room November 22 for evaluation of generalized weakness fatigue and fake chest discomfort in the form of heaviness and pressure. Of note is that patient was receiving diagnosed with acute sinusitis and bronchitis and was started on antibiotics. Please refer the admission for further details. His initial temperature in ED was 99.7, his initial BP was 212/95. Chest x-ray showed no acute cardio pulmonary disease. Patient is admitted to monitor bed. Serial cardiac enzymes were obtained and his troponins were negative. Treatment of IV antibiotic in the form Levaquin was instituted and his fever has resolved. Outpatient regimen for his chronic medical conditions was continued. Patient required up titration of BP meds since his blood pressure was running high. He was seen consultation by associate theatre professor and no indications for stress test were found. Follow-up office visit was recommended in 2 weeks. Patient activity level was gradually advanced and by time of discharge was able to ambulate freely with no assistance no chest symptoms. On patient was cleared for discharge by associate theatre professor and in clinically stable improved condition he has been discharged home to the care of the family his PCP.. Total Time: 40 min . Code: 78167 (>30min.) - Physical Exam Vital Signs: Last Vital Signs Temp 98.1 F 11/25/16 11:00 Pulse 74 11/25/16 11:00 Resp 20 11/25/16 11:00 BP 178/88 11/25/16 11:00 Pulse Ox 94 11/25/16 11:00 Oxygen Pulse Oxygen Saturation 94 O2 Device Room Air Oxygen Flow Rate Fraction of Inspired Oxygen ( FIO2) Constitutional: Alert (Awake), No apparent distress Oriented to: Time, Person, Place - HEENT Head: Normal ( normocephalic) Eye: Normal (PERRL, EOMI, Sclera white) Oropharynx: Normal (Pharynx:Moist without exudate,Gums-no swelling) ENT EAC: Normal TMJ: Normal Nose: No Symptoms Reported (septum midline) - Respiratory/Cardiovascular Respiratory: Normal - CTA (BBS clear to auscultation without adventitious sounds ), Diminished, Rhonchi Cardiovascular: Normal, Systolic murmur, Other (Cardiac auscultation S1-S2 regular 2/6 systolic murmur at the apex lungs bilateral air entry and no pedal edema.) - GI Auscultation: Normal (NABS) Palpation: Normal (Soft,No rebound or guarding, non distended) Tenderness: Non tender Rectal Exam: Deferred - Musculoskeletal Back: Normal (Non-Tender) Extremities: Normal (Normal tone, Pulses 2+ No cyanosis or edema, FROM) - Integumentary Skin: Normal, Warm, Dry Lymphatics: Normal (no adenopathy) - Neurologic Memory Impaired: Normal Motor Function: Normal Cranial Nerve: Normal Cerebellar: Normal Mood Description: Normal Perception: Normal - Other Exam Other Exam Findings: Allergies No Known Allergies Allergy (Verified 03/28/15 21:50) Initial Vitals Temperature 99.7 F 11/22/16 17:20 Pulse Rate 81 11/22/16 17:20 Respiratory Rate 16 11/22/16 17:20 Blood Pressure 176/84 11/22/16 17:20 Pulse Oxygen Saturation 94 11/22/16 17:20 11/23/16 02:50 11/23/16 02:50 Abnormal Lab Results 11/24/16 11/24/16 11/25/16 16:10 20:39 05:42 POC Capillary Glucose 238 H 217 H 159 H 11/25/16 11:31 POC Capillary Glucose 221 H Last Vital Signs Temp 98.1 F 11/25/16 11:00 Pulse 74 11/25/16 11:00 Resp 20 11/25/16 11:00 BP 178/88 11/25/16 11:00 Pulse Ox 94 11/25/16 11:00 Discharge Home Medication List Clonidine [Catapres-TTS 3 (0.3 mg/24 hr)] 1 patch TOP Q7D 05/26/13 [History Confirmed 11/22/16] NPH, Human Insulin Isophane [Novolin N] 30 unit SQ BID 05/26/13 [History Confirmed 11/22/16] Omeprazole [Prilosec] 20 mg PO DAILY 05/26/13 [History Confirmed 11/22/16] HydrALAZINE (Cardiovascular) [Apresoline] 50 mg PO TID #90 tab 06/14/13 [Rx Confirmed 11/22/16] Calcium Carb/Vit D3/Minerals [Caltrate w/ Vit D Tab (600mg/800IU)] 600 - 800 mg PO DAILY 10/03/13 [History Confirmed 11/22/16] Rosuvastatin Calcium [Crestor] 5 mg PO DAILY 10/03/13 [History Confirmed ] Flunisolide [Nasarel] 1 spray SONNY DAILY 03/05/15 [History Confirmed 11/22/16] Isosorbide Mononitrate [Imdur] 60 mg PO DAILY 03/05/15 [History Confirmed ] Rivaroxaban [Xarelto] 15 mg PO DAILY 03/05/15 [History Confirmed 11/22/16] Tramadol HCl 1 - 2 tabs PO Q4 PRN 03/05/15 [History Confirmed 11/22/16] Carvedilol [Coreg] 25 mg PO BID #60 tablet 04/02/15 [Rx Confirmed 11/22/16] Furosemide [Lasix] 80 mg PO 0800,1600 #120 04/02/15 [Rx Confirmed 11/22/16] POTASSIUM CHLORIDE Tablet [K-DUR 20 mEq Tablet*] 20 meq PO DAILY@1200 #30 tab.er.prt 04/02/15 [Rx Confirmed 11/22/16] Probiotic Blend [Aura Q] 1 tab PO BIDLS #60 tablet 04/02/15 [Rx Confirmed 11/22] Acetaminophen [Tylenol] 1,300 mg PO DAILY PRN 11/22/16 [History Confirmed ] Cyanocobalamin (Vitamin B-12) [Vitamin B-12 (cyanocobalamin)] 1,000 mcg SL DAILY 11/22/16 [History Confirmed 11/22/16] E-Manganese 1 tab PO DAILY PRN 11/22/16 [History Confirmed 11/22/16] Ferrous Sulfate [Iron] 325 mg PO DAILY 11/22/16 [History Confirmed 11/22/16] Fexofenadine HCl [Lexus] 180 mg PO DAILY 11/22/16 [History Confirmed 11/22/16] Nitroglycerin Sublingual Tab [NTG (NitroStat Sublingual Tab)] 0.4 mg SL Q5MX3 PRN 11/22/16 [History Confirmed 11/22/16] Oxycodone HCl [Roxicodone] 5 mg PO Q4-6H PRN 11/22/16 [History Confirmed ] Tamsulosin HCl [Flomax] 0.4 mg PO QHS 11/22/16 [History Confirmed 11/22/16] Amlodipine [Norvasc] 10 mg PO DAILY #90 tab 11/25/16 [Rx] Guaifenesin [Mucinex] 1,200 mg PO BID #14 tbmp.12hr 11/25/16 [Rx] Levofloxacin [Levaquin] 750 mg PO DAILY #5 tablet 11/25/16 [Rx] New Discharge Medications (Rx) Amlodipine [Norvasc] 10 mg PO DAILY #90 tab 11/25/16 [Rx] Guaifenesin [Mucinex] 1,200 mg PO BID #14 tbmp.12hr 11/25/16 [Rx] Levofloxacin [Levaquin] 750 mg PO DAILY #5 tablet 11/25/16 [Rx] Home Medications Clonidine [Catapres-TTS 3 (0.3 mg/24 hr)] 1 patch TOP Q7D 05/26/13 NPH, Human Insulin Isophane [Novolin N] 30 unit SQ BID 05/26/13 Omeprazole [Prilosec] 20 mg PO DAILY 05/26/13 HydrALAZINE (Cardiovascular) [Apresoline] 50 mg PO TID #90 tab 06/14/13 Calcium Carb/Vit D3/Minerals [Caltrate w/ Vit D Tab (600mg/800IU)] 600 - 800 mg PO DAILY 10/03/13 Rosuvastatin Calcium [Crestor] 5 mg PO DAILY 10/03/13 Flunisolide [Nasarel] 1 spray SONNY DAILY 03/05/15 Isosorbide Mononitrate [Imdur] 60 mg PO DAILY 03/05/15 Rivaroxaban [Xarelto] 15 mg PO DAILY 03/05/15 Tramadol HCl 1 - 2 tabs PO Q4 PRN 03/05/15 Carvedilol [Coreg] 25 mg PO BID #60 tablet 04/02/15 Furosemide [Lasix] 80 mg PO 0800,1600 #120 04/02/15 POTASSIUM CHLORIDE Tablet [K-DUR 20 mEq Tablet*] 20 meq PO DAILY@1200 #30 tab.er.prt 04/02/15 Probiotic Blend [Aura Q] 1 tab PO BIDLS #60 tablet 04/02/15 Acetaminophen [Tylenol] 1,300 mg PO DAILY PRN 11/22/16 Cyanocobalamin (Vitamin B-12) [Vitamin B-12 (cyanocobalamin)] 1,000 mcg SL DAILY 11/22/16 E-Manganese 1 tab PO DAILY PRN 11/22/16 Ferrous Sulfate [Iron] 325 mg PO DAILY 11/22/16 Fexofenadine HCl [Lexus] 180 mg PO DAILY 11/22/16 Nitroglycerin Sublingual Tab [NTG (NitroStat Sublingual Tab)] 0.4 mg SL Q5MX3 PRN 11/22/16 Oxycodone HCl [Roxicodone] 5 mg PO Q4-6H PRN 11/22/16 Tamsulosin HCl [Flomax] 0.4 mg PO QHS 11/22/16 Amlodipine [Norvasc] 10 mg PO DAILY #90 tab 11/25/16 Guaifenesin [Mucinex] 1,200 mg PO BID #14 tbmp.12hr 11/25/16 Levofloxacin [Levaquin] 750 mg PO DAILY #5 tablet 11/25/16 Patient Name: KO PARKER LOC: [facility] : 1940 AGE: 76 Order Date:11/23/16 Date of Service:10/28 Report # [id number] Ord Physician: Leon Morrow MD Exam # [id number] Emergency Physician: Nick Ambrocio DO Exam(s): [id number] RAD/DG CHEST 2V CLINICAL DATA: Fever, cough, sinus problems EXAM: CHEST 2 VIEW COMPARISON: 11/22/2016 FINDINGS: There is no focal parenchymal opacity. There are trace bilateral pleural effusions. There is a known pneumothorax. There is mild bilateral interstitial prominence. There is stable cardiomegaly. There is evidence of prior median sternotomy. The osseous structures are unremarkable. IMPRESSION: Cardiomegaly with mild pulmonary vascular congestion. Electronically Signed By: Regla Thompson On: 11/23/2016 11:46 Electronically
[2016-11-25] MEDS: PROBIOTIC BLEND TAB PO SCH (12:07)
[2016-11-25] MEDS: FERROUS SULFATE 324 MG TAB PO SCH (12:07)
[2016-11-25] MEDS: POTASSIUM CHLORIDE 20 MEQ TAB PO SCH (12:07)
[2016-11-25] MEDS: CYANOCOBALAMIN (Vitamin B-12) 500 MCG TABLET PO SCH (12:08)
[2016-11-25 12:53] VITALS: PULSE 68
--- NOTE | 2016-11-25 14:28 | CAPUECHO ---
INDICATION: HEIGHT: 0.0 cm (0 ft 0.0 in) WEIGHT: 0.0 kg (0.0 lbs) BP: 178/88 BSA: 0 m MEASUREMENTS 2D RVIDd: 3.3 cm IVSd: 1.2 cm LVIDd: 5.1 cm LVPWd: 1.3 cm LVIDs: 3.4 cm EF(Teich): 62.66 % LA Diam: 4.1 cm EF Biplane: 63.28 % LAESV MOD A4C: 56.9 ml LAESV MOD A2C: 58.0 ml M-MODE Ao Diam: 3.5 cm LA Diam: 4.3 cm DOPPLER MV E Corbin: 0.73 m/s MV A Corbin: 0.83 m/s MV PHT: 69.39 ms MVA By PHT: 3.17 cm LVOT Vmax: 0.73 m/s AV Vmax: 1.67 m/s FINDINGS ------- Procedure:2D images, m-mode, color and spectral Doppler were obtained and reviewed. ECG rhythm:Sinus rhythm with extra systolic beats. Study quality:This was a technically difficult study with suboptimal views. Left Ventricle:The left ventricular size is normal. There is mild concentric left ventricular hype rtrophy. Overall left ventricular systolic function is normal with, an EF between 55 - 60 %. The diastolic filling pattern indicates impaired relaxation. Basal inferior LV wall motion is hypokin etic. Right Ventricle:The right ventricle is normal in size and function. Left Atrium:The left atrium is mildly dilated. Right Atrium:The right atrium is normal in size and function. Aortic Valve:The aortic valve is trileaflet and appears structurally normal. There is mild aortic valve sclerosis. Mitral Valve:Normal appearing mitral valve. Mild mitral regurgitation is present. Tricuspid Valve:The tricuspid valve appears structurally normal. Trace tricuspid regurgitation pre sent. Pulmonic Valve:The pulmonic valve is normal. There is no pulmonic regurgitation present. Aorta:The aortic root, ascending aorta and aortic arch appear normal. IVC:Normal inferior vena cava with normal inspiratory collapse. Pericardium:There is no pericardial effusion. CONCLUSIONS 1. This was a technically difficult study with suboptimal views. 2. The left ventricular size is normal. 3. There is mild concentric left ventricular hypertrophy. 4. Overall left ventricular systolic function is normal with, an EF between 55 - 60 %. 5. The diastolic filling pattern indicates impaired relaxation. 6. The left atrium is mildly dilated. 7. Mild mitral regurgitation is present. Electronically Signed By: Bismark Alan MD -- Electronically Signed On: 14:27:13
--- NOTE | 2016-11-26 08:43 | CAPUEKG ---
[place], [place] Test Date: 2016-11-25 Pat Name: KO PARKER Department: Room: 446 Gender: Male Technology Support Analyst: : Requested By: Order Number: Reading MD: Bismark Alan MD Measurements Intervals [place] Rate: 68 P: 52 MD: 146 QRS: 29 QRSD: 110 T: 147 QT: 428 QTc: 455 Interpretive Statements Normal sinus rhythm Inferior infarct, age undetermined ST \T\ T wave abnormality, consider lateral ischemia Abnormal ECG Electronically Signed On 11-26-16 08:42:56 EST by Bismark Alan MD <[email or web address] [id number]
== END 2016-11-25 14:40 | disposition home or self-care (01) | DRG 303 ==
LOC: ED 17:20 → EDINP 21:42 → PCU 11-23 16:00
PROVIDERS: ADMIT Internal Medicine; ATTEND Internal Medicine
PROC: 039C3ZZ Drainage of Left Radial Artery, Percutaneous Approach (ICD-10-PCS; principal; 2016-11-22)
DX: I25.709 Atherosclerosis of coronary artery bypass graft(s), unspecified, with unspecified angina pectoris (principal); N17.9 Acute kidney failure, unspecified; E11.65 Type 2 diabetes mellitus with hyperglycemia; I50.9 Heart failure, unspecified; I16.1 Hypertensive emergency; I10 Essential (primary) hypertension; Z95.1 Presence of aortocoronary bypass graft; I25.2 Old myocardial infarction; E78.00 Pure hypercholesterolemia, unspecified; J44.9 Chronic obstructive pulmonary disease, unspecified; K21.9 Gastro-esophageal reflux disease without esophagitis; N40.0 Benign prostatic hyperplasia without lower urinary tract symptoms; M19.90 Unspecified osteoarthritis, unspecified site; Z79.899 Other long term (current) drug therapy; R09.02 Hypoxemia; E78.5 Hyperlipidemia, unspecified; B34.9 Viral infection, unspecified
CPT/HCPCS: 36415; 36600; 71010; 71020; 80053; 80061; 81001; 82043; 82550; 82803; 82962; 83036; 83605; 83880; 84484; 85025; 85027; 85610; 85730; 87040; 87086; 87804; 93005; 93306; 96372; 99285; J0360; J1956; J3490; S5571